=== PATIENT | male | born 1975 | race Caucasian/White ===

== ENCOUNTER 2025-02-16 10:26 | Emergency (ER) | payer OTHER, SELFPAY ==
[2025-02-16] VITALS (12 sets, daily range): BP systolic 143–174; BP diastolic 91–113; PULSE 54–70; RESP 15; TEMP 37.2; O2SAT 95–99; BMI 27.3
--- NOTE | 2025-02-16 11:03 | ED.ABDPAIN ---
HPI - Abdominal Pain General Chief Complaint: Abdominal Pain Stated Complaint: Pain LT rib area; sob this am Time Seen by Provider: 02/16/25 10:30 Source: patient Mode of arrival: Ambulatory History of Present Illness HPI narrative: 50-year-old gentleman presents with left flank pain with a few days ago unrelieved with multiple doses of ibuprofen. He has been working in the [employer] and may have lifted something heavy but does not recall any inciting event that may have caused this. Patient denies fever chills body aches nausea vomiting diarrhea constipation abdominal pain hematuria penile discharge testicular pain or gait instability. Other than what is stated 14 point review of system is negative. Related Data Previous Rx's ?Medication ?Instructions ?Recorded cyclobenzaprine 10 mg tablet 10 mg PO TID PRN muscle spasm #30 02/16/25 tabs diclofenac sodium 75 mg 75 mg PO BID PRN pain #30 tabs 02/16/25 tablet,delayed release prednisone 20 mg tablet 20 mg PO DAILY #5 tabs 02/16/25 Allergies Allergy/AdvReac Type Severity Reaction Status Date / Time No Known Drug Allergies Allergy Verified 02/16/25 10:39 Review of Systems Review of Systems ROS Unobtainable: All systems reviewed & are unremarkable except as noted in HPI and below Patient History Social History Smoking Status: Unknown if ever smoked Smoking Status: Unknown if ever smoked Exam Narrative Exam Narrative: GENERAL: [50] year old patient appears stated age. Well-developed patient, in mild distress. HEAD: Atraumatic. Normocephalic. EYES: Pupils equal round and reactive. Extraocular motions intact. No scleral icterus. No injection or drainage. ENT: Nose without bleeding, purulent drainage. Throat without erythema, tonsillar hypertrophy or exudate. Airway patent. NECK: Trachea midline. Non tender CARDIOVASCULAR: Regular rate and rhythm without murmurs, gallops, or rubs. RESPIRATORY: Clear to auscultation. Breath sounds equal bilaterally. No wheezes, rales, or rhonchi. GASTROINTESTINAL: Abdomen soft, left lower quadrant tender to palpate but no rebound rigidity or guarding, nondistended. EXTREMITIES: No edema or joint tenderness. BACK: L flank TTP without deformity or crepitance. No flank tenderness. NEURO: AOx3. SKIN: No rash or erythema of visible areas Initial Vital Signs Initial Vital Signs: Vital Signs Temperature 98.9 F 02/16/25 10:27 Pulse Rate 70 02/16/25 10:27 Respiratory Rate 15 02/16/25 10:27 Blood Pressure 146/100 H 02/16/25 10:27 Pulse Oximetry 98 02/16/25 10:27 Oxygen Delivery Method Room Air 02/16/25 10:27 Course Orders Ordered: ED Orders 02/16/25 11:08 CT abdomen pelvis w con Stat EKG-12 Lead Stat 02/16/25 11:30 Complete Blood Count AUTO DIFF Stat Comprehensive Metabolic Panel Stat Lipase Stat Ondansetron HCl (Ondansetron 4 Mg/2 Ml Inj) 4 mg IV NOW PRN PRN Reason: Nausea And Vomiting Last Admin: 02/16/25 11:18 Dose: 4 mg Documented By: CIARRA Ondansetron HCl (Ondansetron 4 Mg Odt) 4 mg PO NOW PRN PRN Reason: Nausea And Vomiting Ondansetron HCl (Ondansetron 4 Mg/2 Ml Inj) 4 mg IV NOW PRN PRN Reason: Nausea And Vomiting Ondansetron HCl (Ondansetron 4 Mg Odt) 4 mg PO NOW PRN PRN Reason: Nausea And Vomiting Discontinued Medications Hydromorphone HCl (Hydromorphone 1 Mg/Ml Syringe) 1 mg IV NOW ONE Stop: 02/16/25 12:19 Last Admin: 02/16/25 12:22 Dose: 1 mg Documented By: CIARRA Lactated Ringer's (Lactated Ringers) 1,000 mls @ 1,000 mls/hr IV BOLUS ONE Stop: 02/16/25 12:07 Last Infusion: 02/16/25 12:20 Dose: Infused Documented By: Admin: 02/16/25 11:18 Dose: 1,000 mls/hr Documented By: CIARRA Ketorolac Tromethamine (Ketorolac 30 Mg/Ml Vial) 15 mg IV NOW ONE Stop: 02/16/25 11:09 Last Admin: 02/16/25 11:19 Dose: 15 mg Documented By: CIARRA Vital Signs Vital signs: Vital Signs - 8 hr 02/16/25 10:27 02/16/25 10:51 02/16/25 10:53 Temperature 98.9 F Pulse Rate 70 66 67 Respiratory Rate 15 Blood Pressure 146/100 H Pulse Oximetry 98 98 99 Oxygen Delivery Method Room Air Room Air 02/16/25 10:53 02/16/25 11:00 02/16/25 11:00 Temperature Pulse Rate 70 Respiratory Rate Blood Pressure 164/93 H 143/91 H Pulse Oximetry 95 Oxygen Delivery Method 02/16/25 11:30 02/16/25 11:31 02/16/25 11:31 Temperature Pulse Rate 54 L 55 L Respiratory Rate Blood Pressure 155/113 H Pulse Oximetry 96 96 Oxygen Delivery Method 02/16/25 11:51 02/16/25 11:51 02/16/25 11:53 Temperature Pulse Rate 64 Respiratory Rate Blood Pressure 174/105 H 157/95 H Pulse Oximetry 97 Oxygen Delivery Method 02/16/25 11:53 02/16/25 12:00 02/16/25 12:00 Temperature Pulse Rate 65 57 L Respiratory Rate Blood Pressure 157/97 H Pulse Oximetry 96 96 Oxygen Delivery Method 02/16/25 12:30 02/16/25 12:30 Temperature Pulse Rate 67 Respiratory Rate Blood Pressure 155/94 H Pulse Oximetry 95 Oxygen Delivery Method MDM - Abdominal Pain Lab Data 02/16/25 11:30 02/16/25 11:30 Labs: Lab Results 02/16/25 Range/Units 11:30 WBC 5.0 (4.5-11.0) X10^3/uL RBC 4.77 (4.5-5.9) X10^6/uL Hgb 14.0 (13.5-17.5) g/dL Hct 41.1 (41-53) % MCV 86.1 (80-100) fL MCH 29.4 (26-34) PG MCHC 34.1 (30-36) % RDW 13.5 (11.6-14.8) % Plt Count 140 L (150-400) X10^3/uL Neut % (Auto) 55.3 (50-75) % Lymph % (Auto) 33.5 (25-40) % [place] % (Auto) 9.6 (3-14) % Eos % (Auto) 1.0 L (2-4) % Baso % (Auto) 0.6 (0-2) % Neut # (Auto) 2800 (9831-1058) /uL Lymph # (Auto) 1700 (6580-2415) /uL [place] # (Auto) 500 (0-900) /uL Eos # (Auto) 100 (0-450) /uL Baso # (Auto) 0 (0-100) /uL Sodium 136 L (137-145) mmol/L Potassium 4.1 (3.4-5.1) mmol/L Chloride 105 (98-107) mmol/L Carbon Dioxide 20 L (22-32) mmol/L BUN 23 H (9-20) mg/dL Creatinine 0.78 (0.66-1.25) mg/dL Estimated GFR > 60 (>60) mL/min BUN/Creatinine Ratio 29.5 H (6-22) Glucose 112 H (70-99) mg/dL Calcium 8.9 (8.4-10.2) mg/dL Total Bilirubin 1.1 (0.2-1.3) mg/dL AST 32 (17-59) IU/L ALT 32 (<50) IU/L Alkaline Phosphatase 65 (38-126) U/L Total Protein 7.4 (6.3-8.2) g/dL Albumin 4.3 (3.5-5.0) g/dL Globulin 3.1 (1.7-4.1) g/dL Albumin/Globulin Ratio 1.4 (1.0-2.8) Lipase 241 (23-300) U/L Point of care testing: Urine Dip Bedside Urine Glucose Negative Bedside Urine Bilirubin - Negative Bedside Urine Ketone - Negative Urine Specific [place] 1.025 Bedside Urine Occult Blood - Negative Bedside Urine pH 5.5 Bedside Urine Protein +/- 15 Bedside Urine Urobilinogen - Negative Bedside Urine Nitrite - Negative Bedside Urine Leukocytes - Negative Esterase Imaging Data CT scan - abdomen/pelvis: Radiologist's Impression: [place] [address] CT Scan Report Signed Patient: Alice Haskins MR#: [id number] : 1975 Acct:[id number] Age/Sex: 50 / M Date of Service: 02/16/25 Loc: ED Accession Number: [id number] Procedure: CT abdomen pelvis w con Ordering Provider: Henrry Cary D.O. PROCEDURE: CT ABDOMEN PELVIS W CON INDICATIONS: L flank pain TECHNIQUE: After the administration of intravenous contrast, axial sections acquired from the lung bases to the pubic symphysis. Coronal and sagittal reformats were performed. For radiation dose reduction, the following was used: automated exposure control, adjustment of mA and/or kV according to patient size. COMPARISON: None. FINDINGS: Image quality: Diagnostic. Lower Chest: No significant findings. ABDOMEN: Liver: No solid mass. Gallbladder: No radiopaque gallstones or wall thickening. Biliary ducts: No biliary dilation. Pancreas: No ductal dilation. Spleen: Size is within normal limits. Adrenal Glands: No adrenal nodules. Kidneys and Ureters: No hydronephrosis. No solid mass. No complex renal cystic lesion which requires follow up. No urolithiasis. Stomach and Bowel: Normal colonic caliber, without significant wall thickening. The appendix is normal. Peritoneum: No abnormal intraperitoneal fluid. No free air. Ventral Wall: No significant ventral hernia. Abdominal Nodes: No retroperitoneal or mesenteric adenopathy by size criteria. Vessels: Aorta and inferior vena cava are normal in size. PELVIS: Pelvic Organs: Unremarkable. Bladder: No bladder wall thickening, accounting for underdistention. Pelvic Nodes: No enlarged lymph nodes. Miscellaneous: No inguinal hernias are seen. Bones: No aggressive osseous abnormality. IMPRESSION: No acute abdominal process. Specifically, no urolithiasis, appendicitis, diverticulitis, or bowel obstruction. ECG Data Interpretation: NSR HR 61 RI 160 QRS [address]-t wave change No previous EKG to compare MDM Narrative Medical decision making narrative: All lab work, vital signs, nurse triage note, medication list, previous ER visits, and all imaging studies reviewed. CT abdomen pelvis showed no acute abdominal process. Patient given fluids Toradol and Dilaudid here. Differential diagnosis includes kidney stone kidney infection diverticulitis pancreatitis constipation musculoskeletal back spasm. DC home on diclofenac prednisone and Flexeril. CO2 20 BUN 23 white count normal lipase normal LFTs normal Discharge Plan Departure Patient Disposition: Home Clinical Impression: Low back pain Qualifiers: Chronicity: acute Back pain laterality: left Sciatica presence: without sciatica Qualified Code(s): M54.50 - Low back pain, unspecified Instructions: Low Back Pain Activity Restrictions/Additional Instructions: Return with new or worsening symptoms. Take your medicines directed. Follow up PCP in 1-2 weeks if no improvement in symptoms. Prescriptions: New diclofenac sodium 75 mg tablet,delayed release (DR/EC) 75 mg PO BID PRN (Reason: pain) Qty: 30 0RF prednisone 20 mg tablet 20 mg PO DAILY Qty: 5 0RF cyclobenzaprine 10 mg tablet 10 mg PO TID PRN (Reason: muscle spasm) Qty: 30 0RF Stand Alone Forms: Patient Portal/API
--- NOTE | 2025-02-16 11:08 | EKG_ITS ---
[place] [id number] [place] [id number] Test Date: 2025-02-16 Pat Name: Alice Haskins Department: [facility] Room: Gender: Male Nephrology Nurse: ROMINA : 1975 Requested By: Order Number: [id number] Reading MD: Henrry Fowler MD Measurements Intervals [place] Rate: 61 P: 9 ID: [id number] QRS: -18 QRSD: 90 T: 2 QT: 416 QTc: 418 Interpretive Statements Normal sinus rhythm Minimal voltage criteria for LVH, may be normal variant ( R in aVL ) Electronically Signed On 02-18-2025 7:46:34 PDT by Henrry Fowler MD
--- NOTE | 2025-02-16 11:08 | DI.CT.S_ITS ---
PROCEDURE: CT ABDOMEN PELVIS W CON INDICATIONS: L flank pain TECHNIQUE: After the administration of intravenous contrast, axial sections acquired from the lung bases to the pubic symphysis. Coronal and sagittal reformats were performed. For radiation dose reduction, the following was used: automated exposure control, adjustment of mA and/or kV according to patient size. COMPARISON: None. FINDINGS: Image quality: Diagnostic. Lower Chest: No significant findings. ABDOMEN: Liver: No solid mass. Gallbladder: No radiopaque gallstones or wall thickening. Biliary ducts: No biliary dilation. Pancreas: No ductal dilation. Spleen: Size is within normal limits. Adrenal Glands: No adrenal nodules. Kidneys and Ureters: No hydronephrosis. No solid mass. No complex renal cystic lesion which requires follow up. No urolithiasis. Stomach and Bowel: Normal colonic caliber, without significant wall thickening. The appendix is normal. Peritoneum: No abnormal intraperitoneal fluid. No free air. Ventral Wall: No significant ventral hernia. Abdominal Nodes: No retroperitoneal or mesenteric adenopathy by size criteria. Vessels: Aorta and inferior vena cava are normal in size. PELVIS: Pelvic Organs: Unremarkable. Bladder: No bladder wall thickening, accounting for underdistention. Pelvic Nodes: No enlarged lymph nodes. Miscellaneous: No inguinal hernias are seen. Bones: No aggressive osseous abnormality. IMPRESSION: No acute abdominal process. Specifically, no urolithiasis, appendicitis, diverticulitis, or bowel obstruction. Dictated by: Erna Kaufman M.D. on 02/16/2025 at 11:21 Approved by: Erna Kaufman M.D. on 02/16/2025 at 11:23
[2025-02-16] MEDS: ONDANSETRON 4 MG/2 ML INJ IV (11:18)
[2025-02-16] MEDS: LACTATED RINGERS 1,000 ML 1000 ML IV (11:18)
[2025-02-16] MEDS: KETOROLAC 30 MG/ML VIAL 15 MG IV (11:19)
[2025-02-16 11:38] LABS: Add Manual Diff / Slide Review NO; Hematocrit 41.1 % (41-53); Hemoglobin 14.0 g/dL (13.5-17.5); Lymphocytes Absolute Auto 1700 /uL (1100-4500); Mean Corpuscular HGB Conc 34.1 % (30-36); Mean Corpuscular Hemoglobin 29.4 PG (26-34); Mean Corpuscular Volume 86.1 fL (80-100); Platelet Count 140 X10^3/uL (150-400)
[2025-02-16 11:51] LABS: Alanine Aminotransferase 32 IU/L (<50); Albumin 4.3 g/dL (3.5-5.0); Albumin Globulin Ratio 1.4 (1.0-2.8); Alkaline Phosphatase 65 U/L (38-126); Blood Urea Nitrogen 23 mg/dL (9-20); Calcium 8.9 mg/dL (8.4-10.2); Carbon Dioxide 20 mmol/L (22-32); Chloride 105 mmol/L (98-107); Estimated Glomerular Filt Rate > 60 mL/min (>60); Globulin 3.1 g/dL (1.7-4.1); Glucose 112 mg/dL (70-99); HEMOLYSIS < 15 (0-50); Lipase 241 U/L (23-300); Potassium 4.1 mmol/L (3.4-5.1); Sodium 136 mmol/L (137-145); Total Protein 7.4 g/dL (6.3-8.2)
== END 2025-02-16 13:42 | disposition home or self-care (01) ==
PROVIDERS: Emergency Provider Family Medicine
DX: M54.50 Low back pain, unspecified (principal)
CPT/HCPCS: 36415; 74177; 80053; 81003; 83690; 85025; 93005; 93010; 96361; 96374; 96375; 99284; J1171; J1885; J2405; Q9967